=== PATIENT | female | born 1985 | race American Indian/Alaskan Native ===

== ENCOUNTER 2016-11-12 22:50 | Emergency (ER) | payer OTHER ==
[2016-11-13 07:04] LABS: Basophils % (Auto) 0.8 % (0.0-1.8); Eosinophils % (Auto) 1.7 % (0.0-4.3); Hematocrit 39.5 % (30.3-42.9); Hemoglobin 12.9 gm/dl (10.1-14.3); Mean Corpuscular HGB Conc 33 % (30-34); Mean Corpuscular Hemoglobin 27 pg (28-32); Mean Corpuscular Volume 84 fl (79-97); Platelet Count 200 K/mm3 (140-440); Red Blood Count 4.73 M/mm3 (3.65-5.03); Red Cell Distribution Width 14.2 % (13.2-15.2); White Blood Count 5.7 K/mm3 (4.5-11.0)
[2016-11-13 07:23] LABS: Anion Gap 16 mmol/L; Blood Urea Nitrogen 11 mg/dL (7-17); Calcium 8.9 mg/dL (8.4-10.2); Carbon Dioxide 26 mmol/L (22-30); Glucose 86 mg/dL (65-100); Potassium 3.6 mmol/L (3.6-5.0); Sodium 139 mmol/L (137-145)
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
--- NOTE | 2016-11-13 08:25 | Cat Scan Report ---
CT HEAD WITHOUT CONTRAST: HISTORY: Headache. Serial contiguous axial images were obtained through the cranium. Intravenous contrast material was not administered. The ventricles are normal in size and appearance. There is no mass effect or midline shift. No areas of abnormally increased or decreased attenuation are seen. No mass lesion is seen. The mastoid air cells and visualized portions of the sinuses are normal. IMPRESSION: Cranial CT scan within normal limits.
--- NOTE | 2016-11-13 08:51 | XRay Report ---
ROUTINE CHEST, TWO VIEWS: HISTORY: chest pain. The trachea, heart, mediastinal contour, lung jauregui and bony thorax are unremarkable. IMPRESSION: Unremarkable chest x-ray.
--- NOTE | 2016-11-13 08:51 | XRay Report ---
CERVICAL SPINE, 3 views: History: Neck pain. AP and lateral views of the cervical spine were obtained. There is anatomic alignment, and the disc spaces are well maintained. There is no evidence of fracture or subluxation. There is loss of the normal cervical lordotic curve suggestive of muscle spasm. The prevertebral soft tissues are within normal limits. IMPRESSION: Loss of cervical lordosis suggesting muscle spasm vs. variation in patient positioning. Clinical correlation is advised. Otherwise negative cervical spine.
[2016-11-13 09:52] VITALS: BP 114/72
== END 2016-11-13 09:51 | disposition home or self-care (01) ==
LOC: ED 22:50
DX: G44.209 Tension-type headache, unspecified, not intractable (principal); M19.90 Unspecified osteoarthritis, unspecified site; V89.2XXA Person injured in unspecified motor-vehicle accident, traffic, initial encounter; Y93.89 Activity, other specified; Y99.8 Other external cause status; Y92.89 Other specified places as the place of occurrence of the external cause
CPT/HCPCS: 36415; 70450; 71020; 72040; 80048; 83690; 84484; 84702; 85025; 93005; 93010